=== PATIENT | male | born 1985 | race African-American/Black ===

== ENCOUNTER 2019-12-12 13:47 | Emergency (ER) | payer OTHER, SELFPAY ==
--- NOTE | ~2019-12-12 | XR_ITS ---
XR chest 1V portable INDICATION: Shortness of breath TECHNIQUE: 2 view chest. FINDINGS: No prior studies for comparison. There is mild bilateral interstitial prominence and peribronchial cuffing. There is no focal consoli dation, pleural effusion, or pneumothorax. The cardiomediastinal silhouette is normal.] IMPRESSION: 1. Findings most consistent with bronchiolitis versus an atypical or viral pneumonia. Reviewed, dictated and finalized at location B. IMPRESSION: 1. Findings most consistent with bronchiolitis versus an atypical or viral pne [facility].
--- NOTE | 2019-12-12 13:54 | ECG_ITS ---
Measurements Intervals [place] Rate: 100 P: 52 NE: 174 QRS: -5 QRSD: 97 T: 54 QT: 323 QTc: 417 Interpretive Statements SINUS TACHYCARDIA EARLY PRECORDIAL R/S TRANSITION POSSIBLE LEFT VENTRICULAR HYPERTROPHY BASELINE WANDER- V1-V6 BORDERLINE ECG Electronically Signed On 12-12-2019 15:08:21 CDT by Sathish Carlin D.O.
[2019-12-12 13:56] VITALS: BP 169/68; PULSE 122; RESP 22; TEMP 38.2; O2SAT 100
[2019-12-12 14:17] LABS: Basophils Percent Auto 0.2 % (0.2-1.2); Hemoglobin 16.8 g/dL (14.0-18.0); Immature Granulocyte Absolute 0.03 K/mm3 (0.00-0.031); Immature Granulocyte Percent A 0.3 % (0-0.5); Lymphocytes Absolute Auto 1.67 K/mm3 (0.9-3.2); Lymphocytes Percent Auto 15.4 % (18.3-44.2); Mean Corpuscular Hemoglobin 31.6 pg (26-34); Mean Corpuscular Volume 90.4 fl (80-100); Mean Platelet Volume 9.5 fl (7.4-10.4); Monocytes Absolute Auto 1.1 K/mm3 (0.1-0.6); Monocytes Percent Auto 9.9 % (2.6-8.5); Neutrophils Absolute Auto 8.1 K/mm3 (1.3-6.7); Neutrophils Percent Auto 74.2 % (45.5-73.1); Platelet Count Result 181 k/mm3 (150-375); Red Blood Count 5.31 M/mm3 (4.6-6.20); Red Cell Distribution Width 13.6 % (11.5-14.5); White Blood Count 10.9 K/mm3 (4.5-10.0)
[2019-12-12 14:29] LABS: Anion Gap 11 mmol/L (8-16); Blood Urea Nitrogen 14 mg/dL (9-20); Calcium 10.2 mg/dL (8.4-10.2); Carbon Dioxide 25 mmol/L (22-30); Chloride 100 mmol/L (98-107); Estimated Glomerular Filt Rate > 60; Glucose 92 mg/dL (75-110); Potassium 3.6 mmol/L (3.4-5.0); Sodium 136 mmol/L (137-145)
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
[2019-12-12] MEDS: SODIUM CHLORIDE 0.9% IV 1,000 ML 999 ML IV CONT (16:18)
[2019-12-12] MEDS: KETOROLAC 30 MG/ML VIAL (*BKC) IV PUSH (16:18)
[2019-12-12 16:42] VITALS: BP 157/75; PULSE 80; RESP 20; O2SAT 99
[2019-12-12 16:45] VITALS: PULSE 81; O2SAT 99
[2019-12-12 22:30] LABS: SARS-CoV-2 RNA PCR Negative
== END 2019-12-12 16:50 | disposition home or self-care (01) ==
PROVIDERS: Emergency Provider Emergency Medicine
DX: J18.9 Pneumonia, unspecified organism (principal); Z20.828 Contact with and (suspected) exposure to other viral communicable diseases; E78.5 Hyperlipidemia, unspecified; I10 Essential (primary) hypertension; R00.0 Tachycardia, unspecified; R94.31 Abnormal electrocardiogram [ECG] [EKG]
CPT/HCPCS: 36415; 71045; 80048; 83605; 85025; 87040; 87635; 87804; 93005; 96374; 99284; C9803; J1885; J7030; U0003

== ENCOUNTER 2020-04-14 14:46 | Emergency (ER) | payer OTHER, SELFPAY ==
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
[2020-04-14 15:03] VITALS: BP 168/82; PULSE 59; RESP 18; TEMP 35.8; O2SAT 100
--- NOTE | 2020-04-14 16:08 | PC.NURSE ---
Pt stops this RN in waiting room informing me that his spouse brought his category manager and that he took two of my prescribed tramadol for my horrible pain .
[2020-04-14] MEDS: IBUPROFEN 600 MG TABLET PO (18:28)
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
== END 2020-04-14 18:33 | disposition home or self-care (01) ==
PROVIDERS: Emergency Provider Emergency Medicine
DX: S29.019A Strain of muscle and tendon of unspecified wall of thorax, initial encounter (principal); V43.52XA Car driver injured in collision with other type car in traffic accident, initial encounter
CPT/HCPCS: 71046; 72072; 73552; 99284; A9270